=== PATIENT | male | born 1965 | race African-American/Black ===

== ENCOUNTER 2020-12-13 16:56 | Emergency (ER) | payer MEDICAID ==
[~2020-12-13] VITALS: Ht 177.8 cm; Wt 90.0 kg
[2020-12-13] MEDS ORDERED: ASPIRIN 81MG TABLET PO ONE (17:45)
[2020-12-13] MEDS ORDERED: NITROGLYCERIN 0.4MG TABLET SL SL PRN (17:45)
[2020-12-13 18:16] LABS: BASOPHILS % 0.4 % (0.0-2.0); EOSINOPHILS % 0.9 % (0.0-5.0); HEMATOCRIT. 36.6 % (42.0-52.0); HEMOGLOBIN. 12.1 g/dL (14.0-18.0); LYMPHOCYTES % 13.7 % (20.0-50.0); MEAN CORPUSCULAR HEMOGLOBIN 27.6 pg (28.0-32.0); MEAN CORPUSCULAR VOLUME 83.5 fL (80.0-94.0); MEAN PLATELET VOLUME 6.8 fl (7.4-10.4); MONOCYTES % 9.2 % (2.0-8.0); NEUTROPHILS % 75.8 % (40.0-76.0); PLATELET 242 x1000/uL (130-400); RED BLOOD CELL COUNT 4.39 mill/uL (4.7-6.1); RED CELL DISTRIBUTION WIDTH 14.2 % (11.6-14.6)
[2020-12-13 18:23] LABS: CHLORIDE 107 mEq/L (98-107)
[2020-12-13 18:27] LABS: D-DIMER 0.36 mg/L FEU (<0.50); INR 0.9; PARTIAL THROMBOPLASTIN TIME 25.1 sec (23.4-31.0); PROTHROMBIN TIME 9.9 sec (9.6-11.0)
[2020-12-13] MEDS ORDERED: MORPHINE SULFATE 4 MG/ML CPJ (NOT FOR IM USE) IV STA (20:53)
[2020-12-13] MEDS ORDERED: ONDANSETRON HCL 4MG/2ML INJ IV STA (20:53)
[2020-12-13] MEDS ORDERED: ENOXAPARIN 100MG/ML SYR SUBCUT ONE (21:00)
[2020-12-13] MEDS ORDERED: MORPHINE SULFATE 2 MG/ML CPJ (NOT FOR IM USE) IV STA (21:20)
[2020-12-14] MEDS ORDERED: ONDANSETRON HCL 4MG/2ML INJ IV STA (00:14)
[2020-12-14] MEDS ORDERED: MORPHINE SULFATE 4 MG/ML CPJ (NOT FOR IM USE) IV STA (00:14)
[2020-12-14] MEDS ORDERED: MORPHINE SULFATE 2 MG/ML CPJ (NOT FOR IM USE) IV SCH (00:30)
[2020-12-14 00:36] VITALS: BP 114/72
== END 2020-12-14 00:36 | disposition short-term general hospital (02) ==
LOC: ER 16:56
DX: R07.89 Other chest pain (principal); I21.4 Non-ST elevation (NSTEMI) myocardial infarction; I25.10 Atherosclerotic heart disease of native coronary artery without angina pectoris; I10 Essential (primary) hypertension; I25.2 Old myocardial infarction; Z20.822 Contact with and (suspected) exposure to COVID-19
CPT/HCPCS: 36415; 71045; 71275; 80053; 83880; 84484; 85025; 85379; 85610; 85730; 86850; 86900; 86901; 87426; 93005; 93970; 93971; 96372; 96374; 96375; 96376; 99291; J1650; J2270; J2405; Z7610

== ENCOUNTER 2022-01-12 21:08 | Emergency (ER) | payer MEDICAID, OTHER ==
[~2022-01-12] VITALS: Ht 170.2 cm; Wt 90.0 kg
[2022-01-12 23:08] LABS: BASOPHILS % 0.8 % (0.0-2.0); EOSINOPHILS % 1.3 % (0.0-5.0); HEMATOCRIT. 41.1 % (42.0-52.0); HEMOGLOBIN. 13.9 g/dL (14.0-18.0); LYMPHOCYTES % 30.1 % (20.0-50.0); MEAN CORPUSCULAR VOLUME 82.7 fL (80.0-94.0); MEAN PLATELET VOLUME 6.8 fl (7.4-10.4); MONOCYTES % 9.7 % (2.0-8.0); NEUTROPHILS % 58.1 % (40.0-76.0); PLATELET 244 x1000/uL (130-400); RED BLOOD CELL COUNT 4.97 mill/uL (4.7-6.1)
[2022-01-12 23:13] LABS: CHLORIDE 103 mEq/L (98-107)
[2022-01-12 23:15] VITALS: BP 144/106
== END 2022-01-13 03:18 | disposition home or self-care (01) ==
LOC: ER 21:08
DX: R07.89 Other chest pain (principal); R94.39 Abnormal result of other cardiovascular function study; I10 Essential (primary) hypertension; I25.10 Atherosclerotic heart disease of native coronary artery without angina pectoris; I25.2 Old myocardial infarction; G40.909 Epilepsy, unspecified, not intractable, without status epilepticus; Z86.718 Personal history of other venous thrombosis and embolism; Z79.01 Long term (current) use of anticoagulants
CPT/HCPCS: 36415; 71045; 80053; 83880; 84484; 85025; 93005; 99285